=== PATIENT | male | born 1945 | race Native Hawaiian/Other Pacific Islander ===

== ENCOUNTER 2016-10-13 13:12 | Emergency (ER) | payer OTHER, BC ==
[~2016-10-13] VITALS: Ht 160 cm; Wt 60.2 kg
[~2016-10-13 13:12] MED LIST: BETAMETHASONE D15 GM TP; CALCITRIOL0.5 MCG PO; CEPHALEXIN500 M2 PO; Cipro PO; DIALYVITE TABL1 EACH PO; ERGOCALCIF50000 UNIT PO; FISH OIL PEARL1 EACH PO; FOSRENOL1000 MG PO; GENTAMICIN SULF30 GM TP; HYDROCODON-ACE1 EAC7 PO; K-DUR20 MEQ PO; K-Dur PO; KLOR-CON M2020 MEQ PO; LEVOFLOXACIN250 MG PO; LISINOPRIL5 MG PO; LOPRESSOR25 MG PO; OMEGA-31000 M1 PO; POTASSIUM CHLO20 ME1 PO; POTASSIUM CL 225 MEQ PO; PROBIOTIC1 EAC1 PO; RENVELA800 MG PO; ROCALTROL0.25 MCG PO; ROCALTROL0.5 MCG PO; TOPICORT 0.25%60 GM TP; TUMS500 MG PO; Tums,OsCal PO; VANCOCIN HCL125 MG PO; VITAMIN B12 100MCG PO
[2016-10-13 15:19] LABS: HEMATOCRIT 34.1 % (38.0-50.0); MCH 34.9 PG (29.0-34.0); MCHC 32.8 G/DL (30.0-36.0); MCV 106.2 FL (86-99); PLATELET COUNT 228 K/uL (156-360); RBC DIS.WIDTH-CV 13.8 % (11.8-14.6); RBC DIS.WIDTH-SD 52.2 % (39-53); RED BLOOD COUNT 3.21 M/uL (4.00-5.50); WHITE BLOOD COUNT 9.3 K/uL (4.1-10.2)
[2016-10-13 15:33] LABS: CHLORIDE 99 mEq/L (99-109); POTASSIUM 3.7 mEq/L (3.7-5.4); SODIUM 140 mEq/L (136-147)
[2016-10-13 15:35] LABS: GLUCOSE 100 mg/dL (70-99)
[2016-10-13 15:37] LABS: ANION GAP 14 MEQ/L (2-14); TOTAL BILIRUBIN 0.6 mg/dL (0.0-1.0)
[2016-10-13 15:39] LABS: ALKALINE PHOSPHATASE 212 IU/L (3-129); GFR ESTIMATE (CALCULATED) 7 mL/min/
[2016-10-13 15:40] LABS: UREA NITROGEN (BUN) 44 mg/dL (9-23)
[2016-10-13 18:16] VITALS: BP 104/65
== END 2016-10-13 18:19 | disposition home or self-care (01) ==
LOC: EME 13:12
DX: R42 Dizziness and giddiness (principal); T46.4X5A Adverse effect of angiotensin-converting-enzyme inhibitors, initial encounter; E86.0 Dehydration; I12.0 Hypertensive chronic kidney disease with stage 5 chronic kidney disease or end stage renal disease; N18.6 End stage renal disease; Z99.2 Dependence on renal dialysis
CPT/HCPCS: 80053; 81003; 85027; 99281; 99284; J3370

== ENCOUNTER 2016-11-01 09:59 | Emergency (ER) | payer OTHER, BC ==
[~2016-11-01] VITALS: Ht 157.5 cm; Wt 59.0 kg
[2016-11-01 11:20] LABS: EOSINOPHIL (%) 0.2 % (0-5); HEMATOCRIT 32.9 % (38.0-50.0); IMMATURE GRANULOCYTE (%) 0.5 % (0.0-0.7); INSTRUMENT ABS NEUTROPHIL CT 4.9 K/uL; LYMPHOCYTE COUNT 0.6 K/uL (1.0-2.8); MCH 34.9 PG (29.0-34.0); MCHC 32.5 G/DL (30.0-36.0); MCV 107.2 FL (86-99); MEAN PLAT.VOLUME 9.7 uM^3 (9.0-12.4); MONOCYTE (%) 9.3 % (3-12); MONOCYTE COUNT 0.6 K/uL (0-0.8); NEUTROPHIL (%) 79.5 % (45-76); NEUTROPHIL COUNT 4.9 K/uL (1.8-6.4); PLATELET COUNT 189 K/uL (156-360); RBC DIS.WIDTH-CV 12.7 % (11.8-14.6); RBC DIS.WIDTH-SD 49.7 % (39-53); RED BLOOD COUNT 3.07 M/uL (4.00-5.50)
[2016-11-01 11:22] LABS: WHITE BLOOD COUNT 6.1 K/uL (4.1-10.2)
[2016-11-01 11:29] LABS: CHLORIDE 101 mEq/L (99-109); POTASSIUM 5.3 mEq/L (3.7-5.4); SODIUM 141 mEq/L (136-147)
[2016-11-01 11:31] LABS: GLUCOSE 132 mg/dL (70-99)
[2016-11-01 11:32] LABS: ANION GAP 17 MEQ/L (2-14)
[2016-11-01 11:35] LABS: GFR ESTIMATE (CALCULATED) 4 mL/min/
[2016-11-01 11:36] LABS: UREA NITROGEN (BUN) 62 mg/dL (9-23)
[2016-11-01 14:55] LABS: C DIFF TOXIN POSITIVE (NEGATIVE)
[2016-11-01 14:56] LABS: PROBE CHECK PASS
[2016-11-01] MEDS ORDERED: VANCOMYCIN HCL125 MG PO (15:07)
[2016-11-01 15:44] VITALS: BP 125/71
== END 2016-11-01 15:50 | disposition home or self-care (01) ==
LOC: EME 09:59
PROVIDERS: Emergency Medicine
DX: A04.7 Enterocolitis due to Clostridium difficile (principal); I12.9 Hypertensive chronic kidney disease with stage 1 through stage 4 chronic kidney disease, or unspecified chronic kidney disease; N18.9 Chronic kidney disease, unspecified; Z99.2 Dependence on renal dialysis
CPT/HCPCS: 71010; 80048; 85025; 87493; 99281; 99285; J2405

== ENCOUNTER 2017-05-04 11:02 | Day surgery (SDC) | payer OTHER, BC ==
[~2017-05-04] VITALS: Ht 160 cm; Wt 58.0 kg
[~2017-05-04 11:02] MED LIST changes: +FISH OIL 1,0001 EAC7 PO; +SLOW-MAG,MAG DE64 MG PO; +VANCOMYCIN HCL125 MG PO
[2017-05-04 12:06] LABS: HEMATOCRIT 37.8 % (38.0-50.0); MCH 32.4 PG (29.0-34.0); MCHC 33.1 G/DL (30.0-36.0); MCV 97.9 FL (86-99); MEAN PLAT.VOLUME 9.8 uM^3 (9.0-12.4); PLATELET COUNT 259 K/uL (156-360); RBC DIS.WIDTH-CV 12.9 % (11.8-14.6); RBC DIS.WIDTH-SD 46.4 % (39-53); RED BLOOD COUNT 3.86 M/uL (4.00-5.50)
[2017-05-04] MEDS ORDERED: K-DUR20 MEQ PO (12:12)
[2017-05-04 12:18] VITALS: BP 134/78
[2017-05-04 12:35] LABS: ANION GAP 15 MEQ/L (2-14); CHLORIDE 93 MEQ/L (99-109); GFR ESTIMATE (CALCULATED) 6 mL/min/; GLUCOSE 116 mg/dL (70-99); POTASSIUM 3.1 MEQ/L (3.7-5.4); SAMPLE HEMOLYSIS CHECK 0; SAMPLE ICTERIC CHECK 0; SAMPLE LIPEMIA CHECK 0; SODIUM 135 MEQ/L (136-147); UREA NITROGEN (BUN) 74 mg/dL (9-23)
[2017-05-04] MEDS ORDERED: NORCO 5/3251 TABLET PO (20:10)
[2017-05-04 20:37] VITALS: BP 158/77
[2017-05-04 21:26] VITALS: BP 137/73
== END 2017-05-04 21:35 | disposition home or self-care (01) ==
LOC: SDC 11:02
PROVIDERS: Surgery
PROC: 0JWT33Z Revision of Infusion Device in Trunk Subcutaneous Tissue and Fascia, Percutaneous Approach (ICD-10-PCS; principal; 2017-05-04)
DX: T82.7XXA Infection and inflammatory reaction due to other cardiac and vascular devices, implants and grafts, initial encounter (principal); Y81.2 Prosthetic and other implants, materials and accessory general- and plastic-surgery devices associated with adverse incidents; I12.0 Hypertensive chronic kidney disease with stage 5 chronic kidney disease or end stage renal disease; N18.6 End stage renal disease; Z99.2 Dependence on renal dialysis; N25.81 Secondary hyperparathyroidism of renal origin
CPT/HCPCS: 80048; 85027; C1750; J0690; J2405; J3010; S0020

== ENCOUNTER 2017-05-16 12:49 | Inpatient (IN) | payer OTHER, BC ==
[~2017-05-16] VITALS: Ht 160 cm; Wt 52.6 kg
[~2017-05-16 12:49] MED LIST changes: +NORCO 5/3251 TABLET PO
[2017-05-16 13:26] LABS: EOSINOPHIL (%) 2.6 % (0-5); EOSINOPHIL COUNT 0.3 K/uL (0-0.3); HEMATOCRIT 28.9 % (38.0-50.0); IMMATURE GRANULOCYTE (%) 0.9 % (0.0-0.7); IMMATURE GRANULOCYTE COUNT 0.1 K/uL; INSTRUMENT ABS NEUTROPHIL CT 7.5 K/uL; LYMPHOCYTE COUNT 0.9 K/uL (1.0-2.8); MCH 32.6 PG (29.0-34.0); MCHC 32.9 G/DL (30.0-36.0); MCV 99.3 FL (86-99); MEAN PLAT.VOLUME 9.5 uM^3 (9.0-12.4); MONOCYTE (%) 7.7 % (3-12); MONOCYTE COUNT 0.7 K/uL (0-0.8); NEUTROPHIL (%) 79.2 % (45-76); NEUTROPHIL COUNT 7.5 K/uL (1.8-6.4); PLATELET COUNT 261 K/uL (156-360); RBC DIS.WIDTH-CV 12.1 % (11.8-14.6); RED BLOOD COUNT 2.91 M/uL (4.00-5.50); WHITE BLOOD COUNT 9.5 K/uL (4.1-10.2)
[2017-05-16 13:31] LABS: CHLORIDE 98 mEq/L (99-109); POTASSIUM 3.6 mEq/L (3.7-5.4); SODIUM 138 mEq/L (136-147)
[2017-05-16 13:33] LABS: GLUCOSE 148 mg/dL (70-99)
[2017-05-16 13:34] LABS: ANION GAP 15 MEQ/L (2-14)
[2017-05-16 13:37] LABS: GFR ESTIMATE (CALCULATED) 4 mL/min/; UREA NITROGEN (BUN) 90 mg/dL (9-23)
[2017-05-16 14:04] LABS: MAGNESIUM 1.6 mg/dL (1.3-2.7)
[2017-05-16] MEDS ORDERED: DUREZOL 0.100 DROP/5 LEFT EYE (16:11)
[2017-05-16] MEDS ORDERED: ILEVRO1.7 ML LEFT EYE (16:11)
[2017-05-16 17:34] LABS: URIC ACID 7.3 mg/dL (3.1-9.2)
[2017-05-16 18:48] LABS: INTER. NORMALIZED RATIO 1.2; PROTHROMBIN TIME 13.4 SEC (10.2-12.9)
[2017-05-16 18:51] LABS: PTT 34.6 SEC (25-37)
[2017-05-16 20:47] VITALS: BP 145/70
[2017-05-16 23:27] VITALS: BP 141/68
[2017-05-17 01:38] LABS: TYPE OF FLUID PD FLUID
[2017-05-17 02:22] LABS: BODY FLUID RBC'S 4 /MM^3 (0-100); BODY FLUID WBC'S 665 /MM^3 (0-500); RED CELL AREA COUNTED 8; RED CELL DILUTION 1; WBC AREA COUNTED 8; WBC DILUTION 1; WHITE CELL RAW COUNT 532
[2017-05-17 02:46] LABS: BODY FLUID EOSINOPHILS 0 % (0-25); MONO RAW COUNT 73; MONONUCLEAR WBC'S 73 %; POLY RAW COUNT 27; POLYNUCLEAR WBC'S 27 % (0-25)
[2017-05-17 06:05] VITALS: BP 156/76
[2017-05-17 07:18] VITALS: BP 153/75
[2017-05-17 09:52] LABS: MCH 32.6 PG (29.0-34.0); MCHC 32.3 G/DL (30.0-36.0); MCV 100.8 FL (86-99); MEAN PLAT.VOLUME 9.5 uM^3 (9.0-12.4); PLATELET COUNT 233 K/uL (156-360); RED BLOOD COUNT 2.58 M/uL (4.00-5.50)
[2017-05-17 10:44] VITALS: BP 159/77
[2017-05-17 10:59] LABS: ANION GAP 16 MEQ/L (2-14); CHLORIDE 98 MEQ/L (99-109); GFR ESTIMATE (CALCULATED) 5 mL/min/; GLUCOSE 153 mg/dL (70-99); POTASSIUM 3.6 MEQ/L (3.7-5.4); SAMPLE HEMOLYSIS CHECK 0; SAMPLE ICTERIC CHECK 0; SAMPLE LIPEMIA CHECK 0; SODIUM 139 MEQ/L (136-147); UREA NITROGEN (BUN) 89 mg/dL (9-23)
[2017-05-17 11:45] VITALS: BP 110/68
[2017-05-17 15:10] VITALS: BP 134/75
[2017-05-17 18:50] LABS: TYPE OF FLUID PD FLUID
[2017-05-17 19:09] LABS: BODY FLUID RBC'S 2 /MM^3 (0-100); BODY FLUID WBC'S 25 /MM^3 (0-500); RED CELL AREA COUNTED 18; RED CELL DILUTION 1; WBC AREA COUNTED 18; WBC DILUTION 1; WHITE CELL RAW COUNT 45
[2017-05-17 19:52] LABS: BODY FLUID EOSINOPHILS 3 % (0-25); MONO RAW COUNT 9; MONONUCLEAR WBC'S 9 %; POLY RAW COUNT 88; POLYNUCLEAR WBC'S 88 % (0-25)
[2017-05-17 20:17] VITALS: BP 153/73
[2017-05-18 00:29] VITALS: BP 146/70
[2017-05-18 06:30] LABS: HEMATOCRIT 27.1 % (38.0-50.0); MCH 31.8 PG (29.0-34.0); MCHC 31.4 G/DL (30.0-36.0); MCV 101.5 FL (86-99); MEAN PLAT.VOLUME 9.8 uM^3 (9.0-12.4); PLATELET COUNT 258 K/uL (156-360); RED BLOOD COUNT 2.67 M/uL (4.00-5.50); WHITE BLOOD COUNT 7.5 K/uL (4.1-10.2)
[2017-05-18 07:07] LABS: ANION GAP 14 MEQ/L (2-14); CHLORIDE 97 MEQ/L (99-109); GFR ESTIMATE (CALCULATED) 5 mL/min/; POTASSIUM 4.1 MEQ/L (3.7-5.4); SAMPLE HEMOLYSIS CHECK 0; SAMPLE ICTERIC CHECK 0; SAMPLE LIPEMIA CHECK 0; SODIUM 137 MEQ/L (136-147); UREA NITROGEN (BUN) 77 mg/dL (9-23)
[2017-05-18 07:13] LABS: GLUCOSE 109 mg/dL (70-99); VANCOMYCIN, TROUGH < 2.0 MCG/ML (10-20)
[2017-05-18 08:08] VITALS: BP 145/73
[2017-05-18 15:29] VITALS: BP 141/79
[2017-05-19 16:21] VITALS: BP 135/79
[2017-05-19 18:08] LABS: ALKALINE PHOSPHATASE 149 IU/L (3-129); DIRECT BILIRUBIN 0.2 mg/dL (0.0-0.3); TOTAL BILIRUBIN 0.6 MG/DL (0.0-1.0)
[2017-05-20 00:20] VITALS: BP 128/86
[2017-05-20 06:44] VITALS: BP 130/88
[2017-05-20 07:03] LABS: HEMATOCRIT 30.4 % (38.0-50.0); MCH 32.7 PG (29.0-34.0); MCHC 31.6 G/DL (30.0-36.0); MCV 103.4 FL (86-99); PLATELET COUNT 294 K/uL (156-360); RBC DIS.WIDTH-SD 45.2 % (39-53); RED BLOOD COUNT 2.94 M/uL (4.00-5.50); WHITE BLOOD COUNT 9.7 K/uL (4.1-10.2)
[2017-05-20 07:32] LABS: ANION GAP 13 MEQ/L (2-14); CHLORIDE 98 MEQ/L (99-109); GFR ESTIMATE (CALCULATED) 6 mL/min/; GLUCOSE 114 mg/dL (70-99); SAMPLE HEMOLYSIS CHECK 0; SAMPLE ICTERIC CHECK 0; SAMPLE LIPEMIA CHECK 0; SODIUM 137 MEQ/L (136-147); UREA NITROGEN (BUN) 55 mg/dL (9-23)
[2017-05-20 07:40] LABS: POTASSIUM 5.9 MEQ/L (3.7-5.4); VANCOMYCIN, TROUGH 6.6 MCG/ML (10-20)
[2017-05-20] MEDS ORDERED: ARANESP60 MCG/0.3 SC (13:21)
[2017-05-20] MEDS ORDERED: LISINOPRIL2.5 MG PO (13:21)
[2017-05-20] MEDS ORDERED: NORCO 5/3251 TABLET PO (13:22)
[2017-05-20 20:15] VITALS: BP 113/71
[2017-05-21 00:30] VITALS: BP 113/69
[2017-05-21 06:37] LABS: ANION GAP 12 MEQ/L (2-14); CHLORIDE 98 MEQ/L (99-109); GFR ESTIMATE (CALCULATED) 6 mL/min/; GLUCOSE 100 mg/dL (70-99); SAMPLE HEMOLYSIS CHECK 0; SAMPLE ICTERIC CHECK 0; SAMPLE LIPEMIA CHECK 0; SODIUM 139 MEQ/L (136-147); UREA NITROGEN (BUN) 51 mg/dL (9-23)
[2017-05-21 06:40] LABS: POTASSIUM 4.2 MEQ/L (3.7-5.4)
[2017-05-21 07:30] VITALS: BP 116/67
[2017-05-21 16:02] VITALS: BP 121/71
[2017-05-21 17:20] VITALS: BP 97/54
[2017-05-21 20:12] VITALS: BP 102/67
[2017-05-21 22:24] VITALS: BP 120/71
[2017-05-22] VITALS: BP 121/72
[2017-05-22 04:00] VITALS: BP 109/61
[2017-05-22 06:52] LABS: ANION GAP 12 MEQ/L (2-14); CHLORIDE 96 MEQ/L (99-109); GFR ESTIMATE (CALCULATED) 6 mL/min/; GLUCOSE 96 mg/dL (70-99); SAMPLE HEMOLYSIS CHECK 0; SAMPLE ICTERIC CHECK 0; SAMPLE LIPEMIA CHECK 0; SODIUM 136 MEQ/L (136-147); UREA NITROGEN (BUN) 54 mg/dL (9-23)
[2017-05-22 07:07] LABS: VANCOMYCIN, TROUGH 4.7 MCG/ML (10-20)
[2017-05-22 07:33] VITALS: BP 124/73
[2017-05-22 15:47] VITALS: BP 99/57
[2017-05-22 20:54] VITALS: BP 117/64
[2017-05-22 23:44] VITALS: BP 118/69
[2017-05-23 04:23] VITALS: BP 112/64
[2017-05-23 08:18] VITALS: BP 128/76
[2017-05-23] MEDS ORDERED: METOPROLOL SUCC25 MG PO (15:18)
== END 2017-05-23 17:48 | disposition home or self-care (01) | DRG 919 ==
LOC: EME 12:49 → EDOF 16:48 → 5EAST 16:48 → ENRESERV 16:49 → 5EAST 19:17
PROVIDERS: Family Medicine; Internal Medicine; Physician Assistant
PROC: 3E1M39Z Irrigation of Peritoneal Cavity using Dialysate, Percutaneous Approach (ICD-10-PCS; principal; 2017-05-17)
DX: T85.71XA Infection and inflammatory reaction due to peritoneal dialysis catheter, initial encounter (principal); K65.8 Other peritonitis; N18.6 End stage renal disease; E44.0 Moderate protein-calorie malnutrition; I13.2 Hypertensive heart and chronic kidney disease with heart failure and with stage 5 chronic kidney disease, or end stage renal disease; I42.9 Cardiomyopathy, unspecified; I50.22 Chronic systolic (congestive) heart failure; N25.81 Secondary hyperparathyroidism of renal origin; Z99.2 Dependence on renal dialysis; Z82.49 Family history of ischemic heart disease and other diseases of the circulatory system; D63.1 Anemia in chronic kidney disease; E83.39 Other disorders of phosphorus metabolism; E83.51 Hypocalcemia; E87.5 Hyperkalemia; E87.6 Hypokalemia; Y84.1 Kidney dialysis as the cause of abnormal reaction of the patient, or of later complication, without mention of misadventure at the time of the procedure
CPT/HCPCS: 71010; 73502; 80048; 80069; 80076; 80170; 80202; 81003; 83605; 83735; 84443; 84550; 85025; 85027; 85610; 85730; 87040; 87070; 87075; 87205; 89051; 97530 GP; 99281; 99285; J0690; J0881; J1580; J1644; J2405; J2543; J3370